=== PATIENT | male | born 1970 | race Caucasian/White ===

== ENCOUNTER 2020-01-31 18:55 | Emergency (ER) | payer BC, SELFPAY ==
--- NOTE | 2020-01-31 19:11 | ED.SKABFB ---
HPI - Skin/Abscess/Foreign Bdy General Chief complaint: Skin/Abscess/Foreign Body Stated complaint: Rash Time Seen by Provider: 01/31/20 19:11 Source: patient and RN notes reviewed History of Present Illness HPI narrative: Patient is a 49-year-old male that presents the urgent care with complaints of a rash to bilateral arms, upper legs, groin, around the belt line and face. Patient states is been ongoing for approximately 2 weeks and is seem to gotten worse. Patient has been using antibiotic cream [id number] as well as hydrocortisone without much relief. Patient states that it hamilton and itches. States that these he does have another member in the household who has been itching and scratching lately but does not currently have lesions. No other acute complaints. No acute distress noted. Patient read the plan of care. Related Data Home Medications Medication Instructions Recorded Confirmed gabapentin 01/31/20 hydrocodone-acetaminophen tablet 01/31/20 lisinopril 01/31/20 naproxen 01/31/20 omeprazole 01/31/20 Allergies Allergy/AdvReac Type Severity Reaction Status Date / Time Honey Bee Allergy Mild Uncoded 06/06/19 09:59 Review of Systems Review of Systems: Narrative: CONSTITUTIONAL: Denies fever, chills, or sweats. EYES: Denies visual changes, redness, or discharge. ENT: Denies rhinorrhea, congestion, sore throat, or otalgia. CARDIOVASCULAR: Denies chest pain, palpitations, or edema. RESPIRATORY: Denies cough or dyspnea. GASTROINTESTINAL: Denies abdominal pain, nausea, vomiting, or diarrhea. GENITOURINARY: Denies dysuria or hematuria. SKIN: Reports of an itchy burning rash to bilateral arms, groin, upper legs, belt line, face MUSCULOSKELETAL: Denies back pain, joint pain, or myalgia. NEUROLOGIC: Denies headache, numbness, or weakness. All other systems reviewed are negative, except as documented in HPI. PMFSH Comments At the time of my signature, I reviewed and agree with the nursing past medical, surgical, social, and family history. There is no relevant family history pertinent to the patient complaint. Exam Narrative: Exam Narrative: GENERAL: This is a well-nourished, well-developed patient, in no apparent distress. HEAD: normocephalic, atraumatic. EYES: PERRL. Sclera clear/white. Vision is grossly intact. EARS: External ears normal NOSE: External nose normal with no obvious nasal discharge THROAT: Mucous membranes moist NECK: Neck supple SKIN: Generalized crusted lesions to bilateral lower arms, groin, around the waist, and scattered areas to the face. Highly likely of generalized scabies. Notable tracks near finger webs NEURO: awake, alert, and oriented to person, place and time. There were no obvious focal neurologic abnormalities. EXTREMITIES: No clubbing, cyanosis, or edema. Course Vital Signs Vital signs: Vital Signs Temperature 98.0 F 01/31/20 19:13 Pulse Rate 101 H 01/31/20 19:13 Respiratory Rate 16 01/31/20 19:13 Blood Pressure 135/87 01/31/20 19:13 Pulse Oximetry 97 01/31/20 19:13 Temperature 98.0 F 01/31/20 19:13 Pulse Rate 101 H 01/31/20 19:13 Respiratory Rate 16 01/31/20 19:13 Blood Pressure 135/87 01/31/20 19:13 Pulse Oximetry 97 01/31/20 19:13 Reviewed MDM - Skin/Abscess/Foreign Bdy MDM Narrative Medical decision making narrative: Advised the patient to follow the instructions related to scabies disinfectant and make sure that he is washing all of his bedding, clothing, furniture appropriately. Be aware that itching may occur for approximately 2 to 4 weeks after treatment. If you notice any new spots after the 4-week leela, follow-up with your PCP for further treatment options. Medication should be taken as directed. It is very dangerous if you take all the tablets at 1 time, and will not cure the parasite if doing so anyways. Therefore the medication will be taken, 5.5 tablets now and repeat the dose in 7-14 days AFTER the first dose
[2020-01-31 19:13] VITALS: BP 135/87; PULSE 101; RESP 16; TEMP 36.7; O2SAT 97
== END 2020-01-31 19:33 | disposition home or self-care (01) ==
PROVIDERS: Emergency Provider Nurse Practitioner Family; PCP Family Medicine
DX: B86 Scabies (principal)
CPT/HCPCS: 99213; G0463

== ENCOUNTER 2020-11-29 10:01 | Emergency (ER) | payer BC, SELFPAY ==
[2020-11-29 10:13] VITALS: BP 139/106; PULSE 120; RESP 18; TEMP 36.2; O2SAT 100
--- NOTE | 2020-11-29 10:31 | ED.SKABFB ---
HPI - Skin/Abscess/Foreign Bdy General Chief complaint: Skin/Abscess/Foreign Body Stated complaint: RASH Source: patient Limitations: no limitations History of Present Illness HPI narrative: The patient, previously mostly healthy, presents with skin eruption. Patient states he has a 1 to 2-week worsening of 1 to 2-month history of pruritic rash that involves his belt line, upper trunk, and bilateral extremities. Symptoms are mild, associations with scattered discrete raised eruptions. He reports he was treated in the past with antiscabies a year ago with some improvement. Discussed will treat broadly, for possible secondary infection. Related Data Home Medications Medication Instructions Recorded Confirmed cyclobenzaprine 10 mg PO TID PRN 11/29/20 11/29/20 gabapentin 600 mg PO DAILY 11/29/20 11/29/20 naproxen 500 mg PO BID 11/29/20 11/29/20 Allergies Allergy/AdvReac Type Severity Reaction Status Date / Time Honey Bee Allergy Mild Unknown Uncoded 11/29/20 10:15 Review of Systems Review of Systems: Narrative: The patient has been informed that they may have pre-hypertension or Hypertension based on a BP reading in the department. I recommend that the patient call the primary care provider listed on their discharge instructions or a physician of their choice this week to arrange follow up for further evaluation of possible pre-hypertension or Hypertension General/Constitutional: No weight loss,fever Eyes: N0: Redness,discharge Ears/Nose/Throat: No: Epistaxis,ear discharge Respiratory: Denies: Hemoptysis Gastrointestinal: No Vomiting, Bleeding-rectal Skin: No Lumps, REPORTS eruption Neurologic: No Focal Weakness,Sz Hematologic: Denies: Petechiae/Purpura Psychiatric: No: Suicida ideationl All Other Systems: Reviewed and Negative PMFSH Comments At time of signature, agree with nursing past medical, surgical, social and family history. There is no relevant family history pertinent to the presenting complaint Exam Narrative: Exam Narrative: General Appearance: Well-nourished cooperative Head: Normocephalic Eye: PERRLA, Conjunctiva clear Ear: External ear normal Nose: Normal nose, Nare clear Mouth/Throat: Normal appearing Neck Exam: Supple Respiratory: Airway patent, No respiratory distress Musculoskeletal: Moves all extremities, Non tender,; dry, fissured web spaces of digits without burrows Skin: Warm, Dry -small, isolated macular papular skin eruption of upper extremities, belt line and upper back Neurological: A&O x3 Psychiatric: Normal mood, Normal affect Course Vital Signs Vital signs: Vital Signs Temperature 97.2 F L 11/29/20 10:13 Pulse Rate 120 H 11/29/20 10:13 Respiratory Rate 18 11/29/20 10:13 Blood Pressure 139/106 H 11/29/20 10:13 Pulse Oximetry 100 11/29/20 10:13 Temperature 97.2 F L 11/29/20 10:13 Pulse Rate 120 H 11/29/20 10:13 Respiratory Rate 18 11/29/20 10:13 Blood Pressure 139/106 H 11/29/20 10:13 Pulse Oximetry 100 11/29/20 10:13 Discharge Plan Discharge Clinical Impression: Folliculitis, Pruritic condition Patient Disposition: Home, Self-Care Condition: Stable Instructions: Antibiotic Form, Folliculitis (ED) Additional Instructions: Stop clindamycin if diarrhea occurs, keep photo log of area Prescriptions: New clindamycin HCl 300 mg capsule 300 mg PO TID Qty: 15 RF: 0 fluconazole 150 mg tablet 150 mg PO WEEKLY Qty: 2 RF: 1 prednisone 20 mg tablet 60 mg PO DAILY Qty: 15 RF: 0 permethrin [Elimite] 5 % cream 1 applic topical Q14D Qty: 60 RF: 0 No Action cyclobenzaprine 10 mg tablet 10 mg PO TID PRN (Reason: Muscle Spasm) RF: 0 gabapentin 300 mg capsule 600 mg PO DAILY RF: 0 naproxen 500 mg tablet 500 mg PO BID RF: 0 Follow-up/Referrals: Darian,Kathie Palacios MD [Primary Care Provider] -
== END 2020-11-29 10:36 | disposition home or self-care (01) ==
PROVIDERS: Emergency Provider Emergency Medicine; PCP Family Medicine
DX: L73.9 Follicular disorder, unspecified (principal); L29.9 Pruritus, unspecified; M19.90 Unspecified osteoarthritis, unspecified site
CPT/HCPCS: 99213; G0463

== ENCOUNTER 2021-01-30 11:17 | Emergency (ER) | payer BC, SELFPAY ==
--- NOTE | ~2021-01-30 | XR_ITS ---
EXAMINATION: XR wrist LT min 3V EXAM DATE: 01/30/2021 11:46 INDICATION: Left radial wrist pain s/p pulling wood 1 month ago. Right wrist pain. TECHNIQUE: Left wrist frontal, frontal with ulnar deviation, oblique and lateral projections obtained and reviewed. There is no prior study for comparison. FINDINGS: Left wrist scapholunate joint space is maintained. Several small benign nonaggressive cyst ic regions suspected in the lunate, capitate and scaphoid, likely mild polyarticular osteoarthritis. Joint spaces are uniform, maintained and without bony productive changes. There are no acute fracture s or dislocations identified. There is no subcutaneous gas. The soft tissue is unremarkable. Ther e are no radiopaque foreign bodies. IMPRESSION: Mild left carpal osteoarthritis. No acute findings. Reviewed, dictated and finalized at location B.
[2021-01-30 11:25] VITALS: BP 125/95; PULSE 107; RESP 16; TEMP 37.2; O2SAT 98
--- NOTE | 2021-01-30 11:53 | ED.UPPEXIN ---
HPI - Extremity Injury (Upper) General Chief Complaint: Extremity Injury, Upper Stated Complaint: left wrist pain Time Seen by Provider: 01/30/21 11:50 Source: patient and RN notes reviewed Mode of arrival: ambulatory Limitations: no limitations History of Present Illness HPI narrative: 50-year-old male presents with concern for left wrist pain. Reports 1 month ago he was moving a piece of plywood when the wind caught it and he felt a pop in his wrist. Reports he has tried icy hot, takes naproxen daily, and within the last week has been using a brace. Reports the brace improves pain mildly. Reports it is tender to touch, hurts when he moves his wrist or fingers. Reports mild swelling. He denies decreased strength, range of motion, sensation in the wrist, hand, digits. MD complaint: injury to: left and wrist Related Data Home Medications Medication Instructions Recorded Confirmed cyclobenzaprine 10 mg PO TID PRN 11/29/20 01/30/21 gabapentin 600 mg PO DAILY 11/29/20 01/30/21 naproxen 500 mg PO BID 11/29/20 01/30/21 Allergies Allergy/AdvReac Type Severity Reaction Status Date / Time Honey Bee Allergy Mild Unknown Uncoded 01/30/21 11:30 Review of Systems Review of Systems: Narrative: CONSTITUTIONAL: Denies malaise, chills, sweats, or fever. SKIN: Denies abrasions, lacerations MUSCULOSKELETAL: Reports left wrist pain, tenderness, swelling NEUROLOGIC: Denies numbness, weakness All systems reviewed & are unremarkable except as noted in HPI and below PMFSH Comments At time of signature, agree with nursing past medical, surgical, social and family history. There is no relevant family history pertinent to the presenting complaint Exam Narrative: Exam Narrative: GENERAL: Well-appearing, well-nourished, and in no acute distress. HEAD: Normocephalic, atraumatic. EYES: PERRLA, conjunctivae clear NECK: Supple. CHEST: Speaks in full sentences. No respiratory distress. HEART: Regular rate and rhythm. Normal and equal peripheral pulses. EXTREMITIES: Left wrist, hand, digits have normal strength and sensation, normal range of motion. Very mild lateral wrist edema, no ecchymosis. 5/5 strength with digit flexion and extension. Normal sensation with sensitivity to light touch and pain. Lateral tenderness. No open wounds, no skin tenting, no devitalized tissue or atrophy, no trophic changes, no obvious deformity, alignment normal, nearby joints and structures intact. Distal pulses palpable and equal bilaterally, skin warm, dry, pink. Capillary refill less than 3 seconds. SKIN: Warm, dry, no rash. NEURO: Alert and oriented x3. PSYCH: Normal mood and affect Course Course Emergency Course: Patient is aware of diagnosis, understands and agrees to treatment plan. Anticipatory guidance given. Patient agrees to follow-up as directed and is aware of reasons to seek care at the emergency department. Portions of this record may have been created with voice recognition software Vital Signs Vital signs: Vital Signs Temperature 98.9 F 01/30/21 11:25 Pulse Rate 107 H 01/30/21 11:25 Respiratory Rate 16 01/30/21 11:25 Blood Pressure 125/95 H 01/30/21 11:25 Pulse Oximetry 98 01/30/21 11:25 Temperature 98.9 F 01/30/21 11:25 Pulse Rate 107 H 01/30/21 11:25 Respiratory Rate 16 01/30/21 11:25 Blood Pressure 125/95 H 01/30/21 11:25 Pulse Oximetry 98 01/30/21 11:25 Reviewed. MDM - Extremity Injury (Upper) MDM Narrative Medical decision making narrative: Patients injury and pain is consistent with musculoskeletal etiology. No signs of neurological or vascular compromise on exam. Compartments and tissues are soft without signs of compartment syndrome. Pain is felt appropriate for further evaluation on an outpatient basis. Differential Diagnosis Differential diagnosis: Likely sprain and strain of wrist and fracture of wrist Imaging Data My impression: Images reviewed, interpreted by radiologist, agree, see report.
== END 2021-01-30 12:13 | disposition home or self-care (01) ==
PROVIDERS: Emergency Provider Nurse Practitioner; PCP Family Medicine
DX: S69.92XA Unspecified injury of left wrist, hand and finger(s), initial encounter (principal); X50.9XXA Other and unspecified overexertion or strenuous movements or postures, initial encounter; R21 Rash and other nonspecific skin eruption; M19.90 Unspecified osteoarthritis, unspecified site
CPT/HCPCS: 73110; 99213; G0463

== ENCOUNTER 2022-11-05 11:30 | Emergency (ER) | payer BC, SELFPAY ==
[2022-11-05 11:37] VITALS: BP 150/114; PULSE 124; RESP 20; TEMP 36.2; O2SAT 94
[2022-11-05 11:38] VITALS: BP 150/114; PULSE 124; RESP 20; TEMP 36.2; O2SAT 94
--- NOTE | 2022-11-05 12:01 | ED.SKABFB ---
HPI - Skin/Abscess/Foreign Bdy General Chief complaint: Skin/Abscess/Foreign Body Stated complaint: rash Time Seen by Provider: 11/05/22 12:01 Source: patient Mode of arrival: ambulatory Limitations: no limitations History of Present Illness HPI narrative: 51-year-old male presented for complaints of itchy rash to upper back and both arms for 5 months. States he is taking an unknown cream prescribed by doctor, and reports no improvement, but has not followed up with provider. Denies changes to lotion, soap, detergent or meds. Denies other people in the house with similar complaints. Related Data Home Medications Medication Instructions Recorded Confirmed cyclobenzaprine 10 mg tablet 10 mg PO TID PRN Muscle Spasm 11/29/20 01/30/21 naproxen 500 mg tablet mg 11/05/22 Allergies Allergy/AdvReac Type Severity Reaction Status Date / Time Honey Bee Allergy Mild Unknown Uncoded 11/05/22 11:37 Review of Systems Review of Systems: CONSTITUTIONAL: Denies body aches, fever, chills, or sweats. EYES: Denies visual changes, redness, or discharge. ENT: Denies rhinorrhea, congestion CARDIOVASCULAR: Denies chest pain, palpitations, or edema. RESPIRATORY: Denies cough or dyspnea. GASTROINTESTINAL: Denies abdominal pain, nausea, vomiting, or diarrhea. SKIN: per HPI MUSCULOSKELETAL: Denies back pain, joint pain, or myalgia. NEUROLOGIC: Denies headache, numbness, tingling, or weakness. [facility] Past Medical History Medical History (Updated 11/05/22 @ 12:24 by Madai Castro, PHI) Patient denies medical problems Comments At time of signature, I have reviewed and agree with nursing past medical, surgical, social and family history unless otherwise noted. Please see nursing chart for further information. There is no relevant family history pertinent to the presenting complaint Exam Narrative: GENERAL: Well-appearing HEAD: Normocephalic, atraumatic. EYES: conjunctivae clear, and EOMI. ENT: Mucous membranes moist. Oropharynx without edema, erythema or lesions. NECK: Supple. No lymphadenopathy CHEST: Clear to auscultation. HEART: Regular rate and rhythm. SKIN: Warm, dry. Scattered erythematous flat patches to upper arms and upper back, as well as scattered erythematous circular lesions approximately 3 mm to 5 mm in diameter. Some erythematous papular lesions consistent with folliculitis, pruritus reported to all sites; no apparent burrows, skin is nontender, no vesicles or clusters present. Appears to have white scarred areas to arms and hands. NEURO: Alert and oriented x3. Course Course Emergency Course: Patient is aware of diagnosis, understands and agrees to treatment plan. Anticipatory guidance given. Patient agrees to follow-up as directed and is aware of reasons to seek care at the emergency department. Portions of this record may have been created with voice recognition software Level of Care: Express Care Visit Vital Signs Vital signs: Vital Signs Temperature 97.2 F L 11/05/22 11:37 Pulse Rate 124 H 11/05/22 11:37 Respiratory Rate 20 11/05/22 11:37 Blood Pressure 150/114 H 11/05/22 11:37 Pulse Oximetry 94 11/05/22 11:37 Oxygen Delivery Room Air 11/05/22 11:37 Temperature 97.2 F L 11/05/22 11:38 Pulse Rate 124 H 11/05/22 11:38 Respiratory Rate 20 11/05/22 11:38 Blood Pressure 150/114 H 11/05/22 11:38 Pulse Oximetry 94 11/05/22 11:38 Oxygen Delivery Room Air 11/05/22 11:38 Reviewed MDM - Skin/Abscess/Foreign Bdy MDM Narrative Medical decision making narrative: Patient has possible hx of scabies, however this does not appear to be scabies. Does not appear at this time to be erythema multiforme, bullous, SJS, TEN; no evidence at this time to suggest RMSF, patient looks well, no neurologic signs or symptoms; no headache, photophobia or neck pain; afebrile; appropriate for initial outpatient treatment; discussed the importance of follow-up, patient agrees. Will t
[2022-11-05 12:24] VITALS: BP 137/100; PULSE 110; RESP 20; O2SAT 98
== END 2022-11-05 12:24 | disposition home or self-care (01) ==
PROVIDERS: Emergency Provider Nurse Practitioner Family; PCP Family Medicine
DX: L30.9 Dermatitis, unspecified (principal); I10 Essential (primary) hypertension; M19.90 Unspecified osteoarthritis, unspecified site
CPT/HCPCS: 99213; G0463

== ENCOUNTER 2024-06-27 12:54 | Emergency (ER) | payer BC, SELFPAY ==
[2024-06-27 13:05] VITALS: BP 153/91; PULSE 98; RESP 18; TEMP 36.6; O2SAT 98
--- NOTE | 2024-06-27 14:45 | PC.NURSE ---
Pt to desk asking for an estimated wait time. When told we couldn't provide that for him he ripped his armband off and threw it at us saying, I'm going to go to a real hospital. A&Ox4
== END 2024-06-27 15:19 | disposition left against medical advice (07) ==
LOC: ANHED 14:51
PROVIDERS: PCP Family Medicine
DX: Z53.21 Procedure and treatment not carried out due to patient leaving prior to being seen by health care provider (principal)
CPT/HCPCS: 99199

== ENCOUNTER 2024-06-27 15:12 | Emergency (ER) | payer BC, SELFPAY ==
--- NOTE | ~2024-06-27 | XR_ITS ---
[id number] Ordering provider: SYLVIA Grimm History: 53 years Male with . pain s/p fall . Comparison: None. FINDINGS: MEDIASTINUM: The cardiac silhouette is not enlarged. LUNGS: No infiltrates, effusions or pneumothorax. OTHER: Fracture in the left 8th and seventh rib is noted. Fracture in the 10th rib also is highly sug gestive. No free air under the diaphragm. IMPRESSION: Left seventh and eighth rib fractures. Otherwise, No acute cardiopulmonary pathology. Reviewed, dictated and finalized at location A.
--- NOTE | ~2024-06-27 | XR_ITS ---
SINGLE AP VIEW PELVIS Ordering provider: SYLVIA Grimm History: . pain in posterior pelvis. fall yesterday . Comparison: None. FINDINGS: BONES: No acute fracture or dislocation. HIP JOINT SPACES: Bilateral severe osteoarthritic changes. SACROILIAC JOINT SPACES/LUMBAR SPINE: The sacroiliac joint spaces are normal. Mild degenerative palafox es of the visualized lower lumbar spine. PUBIC SYMPHYSIS: Normal. SOFT TISSUES: Normal. IMPRESSION: No acute osseous abnormality pelvis. Reviewed, dictated and finalized at location A.
[2024-06-27 15:20] VITALS: BP 136/100; PULSE 100; RESP 20; TEMP 36.8; O2SAT 97
--- NOTE | 2024-06-27 15:38 | ED.GENADULT ---
HPI - General Adult General Chief complaint: Fall Stated complaint: FALL Source: patient Mode of arrival: ambulatory Limitations: no limitations History of Present Illness HPI narrative: Patient presents for evaluation after experiencing a fall yesterday. He was walking down steps inside his home yesterday when he missed a step. He fell and hit his back against the wooden step. He did bump his head but did not have loss of consciousness. He is not on blood thinners. No vomiting since the episode. He reports 3/10 pain in the posterior pelvis and 10 of 10 pain in left side of his back overlying his posterior ribs. Pain is worse with coughing, deep inspiration, and movement. He does feel SOB when he lays down. He does not smoke. He tried taking naproxen for his pain. Related Data Home Medications Medication Instructions Recorded Confirmed metoprolol tartrate 25 mg tablet 25 mg PO BID 06/27/24 06/27/24 naproxen 500 mg tablet 500 mg PO BID 06/27/24 06/27/24 Allergies Allergy/AdvReac Type Severity Reaction Status Date / Time Honey Bee Allergy Mild Unknown Uncoded 06/27/24 15:13 Review of Systems Review of Systems: CONSTITUTIONAL: Denies fever, chills, or sweats. EYES: Denies visual changes, redness, or discharge. ENT: Denies rhinorrhea, congestion, sore throat, or otalgia. CARDIOVASCULAR: Denies chest pain, palpitations, or edema. RESPIRATORY: Denies cough or dyspnea. GASTROINTESTINAL: Denies abdominal pain, nausea, vomiting, or diarrhea. GENITOURINARY: Denies dysuria or hematuria. SKIN: Denies rash or itching. MUSCULOSKELETAL: Reports pain in the left posterior ribs and over the posterior pelvis NEUROLOGIC: Denies headache, numbness, dizziness, or weakness. PSYCHIATRIC: Denies anxiety or depression. [facility] Past Medical History Medical History Multiple fractures of ribs, left side, initial encounter for closed fracture Patient denies medical problems Surgical History Surgical History No pertinent past surgical history Family History Family History Mother Family history non-contributory Social History Social History Smoking status: Never smoker Substance use: current Substance use type: marijuana Living arrangements: with family Gender identity (if verbalized by the patient): Male Spiritual care concerns: No Exam Narrative: GENERAL: Well-appearing, well-nourished, and in no acute distress. HEAD: Normocephalic, atraumatic. EYES: PERRLA and EOMI. ENT: Nares clear, no rhinorrhea or epistaxis. Mucous membranes moist. Oropharynx without tonsillar hypertrophy exudate or other lesions. Bilateral TMs pearly brumfield nonbulging NECK: Supple. No adenopathy or masses. No carotid bruits or JVD CHEST: Clear to auscultation. No respiratory distress. No wheezes rales or rhonchi HEART: Regular rate and rhythm. No murmur heard. Normal peripheral pulses. ABDOMEN: Soft, nontender, nondistended, normal active bowel sounds. EXTREMITIES: Normal range of motion. No edema. BACK: There is tenderness over left posterior ribs and over the posterior pelvis. SKIN: Warm, dry, no rash. NEURO: No focal deficits. Alert and oriented x3. PSYCH: Normal mood and affect. Course Course Emergency Course: This is a 53-year-old male who presented for evaluation of pain following a fall yesterday. X-ray confirmed to definitive rib fractures with potential 3rd. X-ray of the pelvis was negative for fracture. I contacted [facility] and spoke with trauma surgeon, Dr. Borja. he indicated if patient saturations normal he could be discharged home. Saturations 97% on room air. Patient was advised on imaging findings and need to use incentive spirometer. He jennifer
== END 2024-06-27 16:50 | disposition home or self-care (01) ==
PROVIDERS: Emergency Provider Nurse Practitioner; PCP Family Medicine
DX: S22.42XA Multiple fractures of ribs, left side, initial encounter for closed fracture (principal); W10.9XXA Fall (on) (from) unspecified stairs and steps, initial encounter; S37.92XA Contusion of unspecified urinary and pelvic organ, initial encounter; F12.90 Cannabis use, unspecified, uncomplicated
CPT/HCPCS: 71101; 72170; 99214; G0463